=== PATIENT | male | born 1990 | race Caucasian/White ===

== ENCOUNTER 2024-01-07 11:01 | Emergency (ER) | payer SELFPAY ==
[~2024-01-07] VITALS: Ht 167.6 cm; Wt 80.0 kg
[2024-01-07 11:03] VITALS: TEMP 98; O2SAT 98
[2024-01-07] MEDS: LIDOCAINE HCL/PF 1% 10 MG/ML 5ML VIAL INFIL ONE (11:30)
[2024-01-07] MEDS: KETOROLAC 15MG/ML VIAL IM ONE (11:45)
[2024-01-07] MEDS: BACITRACIN ZINC OINT UDPKT TOP ONE (11:45)
[2024-01-07] MEDS: TETANUS, DIPHTHERIA, PERTUSSIS VAC/PF 0.5ML (>10YR OLD) IM ONE (11:46)
[2024-01-07] MEDS: SODIUM CHLORIDE 0.9% 1,000 ML IV ONE (15:06)
[2024-01-07 16:12] VITALS: BP 120/80; PULSE 70; RESP 15
== END 2024-01-07 16:41 | disposition home or self-care (01) ==
LOC: ER 11:43
DX: S63.284A Dislocation of proximal interphalangeal joint of right ring finger, initial encounter (principal); S61.214A Laceration without foreign body of right ring finger without damage to nail, initial encounter; S20.213A Contusion of bilateral front wall of thorax, initial encounter; S50.312A Abrasion of left elbow, initial encounter; S80.211A Abrasion, right knee, initial encounter; F10.129 Alcohol abuse with intoxication, unspecified; I10 Essential (primary) hypertension; V98.8XXA Other specified transport accidents, initial encounter; Y93.89 Activity, other specified; Y92.89 Other specified places as the place of occurrence of the external cause; Y99.8 Other external cause status; Y90.8 Blood alcohol level of 240 mg/100 ml or more
CPT/HCPCS: 80320; 36415; 71045; 73130; 90715; 93005; 12004; 26770; 96372; 99285; J1885; J3490; J7030; Z7610 ×4; G0480